=== PATIENT | female | born 1950 | race Caucasian/White ===

== ENCOUNTER → 2018-04-05 | Outpatient (CLI) | payer OTHER | END | disposition home or self-care (01) | LOC: CFH 07:08 | DX: Z12.31 Encounter for screening mammogram for malignant neoplasm of breast (principal) | CPT/HCPCS: 77063; 77067 ==

== ENCOUNTER 2018-05-26 05:18 | Day surgery (SDC) | payer OTHER ==
[2018-05-18 09:55] VITALS: BP 149/88
[~2018-05-26] VITALS: Ht 168.9 cm; Wt 95.5 kg
[~2018-05-26 05:18] MED LIST: LISI-167 PO; VALA500T4 PO
[2018-05-26] MEDS ORDERED: LACTATED RINGERS 1,000 ML IV SCH (05:52)
[2018-05-26] MEDS ORDERED: LIDOCAINE-MPF 1%, 2ML INFIL ONE (06:00)
[2018-05-26] MEDS ORDERED: LIDOCAINE-MPF 1%, 5ML ONE (06:02)
[2018-05-26] MEDS ORDERED: FENTANYL PF 100 MCG/2ML ONE ×2 (06:32→07:50)
[2018-05-26] MEDS ORDERED: MIDAZOLAM 1 MG/ML, 2ML ONE (06:32)
[2018-05-26] MEDS ORDERED: LIDOCAINE 1%-EPI 1:100K, 30ML ONE (06:32)
[2018-05-26] MEDS ORDERED: ROPIvacaine/PF 0.5%, 30 ML ONE (06:33)
[2018-05-26] MEDS ORDERED: SUCCINYLCHOLINE 20 MG/ML, 10ML ONE (06:58)
[2018-05-26] MEDS ORDERED: GABAPENTIN 300 MG CAPSULE PO ONE (07:00)
[2018-05-26] MEDS ORDERED: ACETAMINOPHEN 500 MG TABLET PO ONE (07:00)
[2018-05-26] MEDS ORDERED: SCOPOLAMINE PATCH, 1.5MG PATCH.TD72 TD ONE (07:00)
[2018-05-26] MEDS ORDERED: PROPOFOL 10 MG/ML, 20ML ONE (07:11)
[2018-05-26] MEDS ORDERED: CEFAZOLIN 1,000 MG ONE (07:11)
[2018-05-26] MEDS ORDERED: ONDANSETRON 2MG/ML, 2ML ONE (07:11)
[2018-05-26] MEDS ORDERED: DEXAMETHASONE 4 MG/ML, 1ML ONE (07:11)
[2018-05-26] MEDS ORDERED: PROMETHAZINE 25 MG/ML, 1ML IV PRN (07:30)
[2018-05-26] MEDS ORDERED: DIPHENHYDRAMINE 50 MG/ML, 1ML IVPush PRN (07:30)
[2018-05-26] MEDS ORDERED: LABETALOL 5MG/ML, 20ML IV PRN (07:30)
[2018-05-26] MEDS ORDERED: OXYcodone 5 MG/5 ML ORAL.SOL UDC PO PRN (07:30)
[2018-05-26] MEDS ORDERED: HYDROmorphone 1 MG/ML, 1ML IV PRN (07:30)
[2018-05-26] MEDS ORDERED: MEPERIDINE/PF 25MG/0.5ML IVPush PRN (07:30)
[2018-05-26] MEDS ORDERED: MEPERIDINE/PF 25MG/0.5ML ONE (07:38)
[2018-05-26] MEDS ORDERED: OXYcodone 5 MG/5 ML ORAL.SOL UDC ONE (07:50)
[2018-05-26] MEDS: FENTANYL PF 100 MCG/2ML IV PRN ×2 (07:54→08:09)
== END 2018-05-26 11:15 | disposition home or self-care (01) ==
LOC: OUT 05:18
PROVIDERS: ATTEND Orthopaedic Surgery
DX: S83.281A Other tear of lateral meniscus, current injury, right knee, initial encounter (principal); S83.241A Other tear of medial meniscus, current injury, right knee, initial encounter; M94.261 Chondromalacia, right knee; M65.861 Other synovitis and tenosynovitis, right lower leg; J45.909 Unspecified asthma, uncomplicated; I10 Essential (primary) hypertension; G47.33 Obstructive sleep apnea (adult) (pediatric); X58.XXXA Exposure to other specified factors, initial encounter; Y93.89 Activity, other specified; Y92.89 Other specified places as the place of occurrence of the external cause; Y99.8 Other external cause status; Z88.1 Allergy status to other antibiotic agents; Z88.8 Allergy status to other drugs, medicaments and biological substances; Z87.891 Personal history of nicotine dependence; Z72.89 Other problems related to lifestyle
CPT/HCPCS: J0690; J1100; J2175; J2250; J2405; J2704; J2795; J3010; J3490; J0330; J7120

== ENCOUNTER → 2018-10-15 | Outpatient (CLI) | payer OTHER | END | disposition home or self-care (01) | LOC: CFH 09-15 14:44 | PROVIDERS: ATTEND Nurse Practitioner | DX: R92.2 Inconclusive mammogram (principal); N64.4 Mastodynia | CPT/HCPCS: 76642; 77066; G0279 ==

== ENCOUNTER → 2019-01-12 | Outpatient (CLI) | payer OTHER | END | disposition home or self-care (01) | LOC: RAD 08:31 | PROVIDERS: ATTEND Nurse Practitioner Family | DX: K22.8 Other specified diseases of esophagus (principal) | CPT/HCPCS: 74247 ==

== ENCOUNTER → 2019-03-11 | Outpatient (CLI) | payer OTHER | END | disposition home or self-care (01) | LOC: RAD 08:42 | PROVIDERS: ATTEND Physician Assistant | DX: Z02.9 Encounter for administrative examinations, unspecified (principal) ==